=== PATIENT | female | born 1980 | race African-American/Black ===

== ENCOUNTER 2017-05-25 09:47 | Observation (INO) | payer OTHER ==
[2017-05-25] VITALS (7 sets, daily range): BP systolic 91–133; BP diastolic 52–70; PULSE 73–90; RESP 12–18; TEMP 98.3–101; O2SAT 95–99
[~2017-05-25] VITALS: Ht 165.1 cm; Wt 56.0 kg
[~2017-05-25 09:47] MED LIST: BACT800T5 PO; DARU800T PO; DOLU1TAB PO; NORV100C PO; TENO300 PO
[2017-05-25] MEDS ORDERED: SODIUM CHLOR 0.9% 1000 ML INJ 1,000 ML IV ONE (10:23)
--- NOTE | 2017-05-25 10:29 | PD ---
HPI Chief Complaint: Medical Clearance Time Seen by Provider: 10:23 Travel History International Travel<30 days: No Contact w/Intl Traveler<30days: No Traveled to known affect area: No History of Present Illness HPI 36-year-old female patient with history of HIV, CMV retinitis, presents to the ER today because of several days of cough, cold symptoms, fevers, nausea, vomiting, diarrhea,, headaches, and malaise. She states that her daughter is recently getting over a cold. She came in because of her HIV history, states that she just wants to get checked out. Modifying Factors: None Associated Signs & Symptoms: Fevers, nausea, vomiting, diarrhea, malaise, cough , headaches, cold symptoms Risk Factors: Sick contact PFSH Past Medical History Arthritis: No Asthma: Yes Autoimmune Disease: Yes (HIV Positive) Blood Disorders: No Cancer: No Cardiovascular Problems: No High Cholesterol: No Chest Pain: No Congestive Heart Failure: No COPD: No Cerebrovascular Accident: No Diabetes: No Diminished Hearing: No GERD: No Glaucoma: No Headaches: No Hepatitis: Yes (STATES POS FOR HEP B) Hiatal Hernia: No Hypertension: No Immune Disorder: Yes (HIV +) Kidney Stones: No Musculoskeletal: Yes (Right leg sx, metal bar.) Neurologic: No Psychiatric: No Reproductive: No Respiratory: Yes (ASTHMA) Myocardial Infarction: No Renal Failure: No Seizures: No Sleep Apnea: No Thyroid Disease: No Ulcer: No ?: Not : 3 Para: 2 Miscarriage: 1 Tubal Ligation: Yes Past Surgical History Abdominal Surgery: No AICD: No Cardiac Surgery: No Section: Yes (X2) Ear Surgery: No Endocrine Surgery: No Eye Surgery: No Genitourinary Surgery: No Gynecologic Surgery: Yes (, SURG FOR BLOOD CLOT IN [place] 07/05 AT [facility]) Neurologic Surgery: No Oral Surgery: No Pacemaker: No Thoracic Surgery: No Other Surgery: Yes ( X2) Social History Alcohol Use: No Tobacco Use: Yes Substance Use: No Allergies-Medications (Allergen,Severity, Reaction): Coded Allergies: hydrocodone (Verified Allergy, Severe, 05/25/17) lamivudine (Verified Allergy, Severe, 05/25/17) meperidine (Verified Allergy, Severe, 05/25/17) oxycodone (Verified Allergy, Severe, 05/25/17) ITCHING promethazine (Verified Allergy, Severe, 05/25/17) Uncoded Allergies: combivir (Allergy, Severe, 03/14/11) Reported Meds & Prescriptions Reported Meds & Active Scripts Active Reported Tivicay (Dolutegravir Sodium) 50 Mg Tab 1 Tab PO DAILY Bactrim DS (Sulfamethoxazole-Trimethoprim DS) 1 Tab Tab 1 Tab PO BID Prezista (Darunavir Ethanolate) 800 Mg Tab 800 Mg PO DAILY Viread (Tenofovir Disoproxil Fumarate) 300 Mg Tab 300 Mg PO DAILY Norvir (Ritonavir) 100 Mg Cap 100 Mg PO DAILY Review of Systems Except as stated in HPI: all other systems reviewed are Neg Physical Exam Narrative GENERAL: Well-developed young -Maced[place] female patient currently in mild distress. Awake and oriented 3. SKIN: Focused skin assessment warm/dry. HEAD: Atraumatic. Normocephalic. EYES: Pupils equal and round. No scleral icterus. No injection or drainage. ENT: No nasal bleeding or discharge. Mucous membranes pink and moist. NECK: Trachea midline. No JVD. CARDIOVASCULAR: Regular rate and rhythm. No murmur appreciated. RESPIRATORY: No accessory muscle use. Clear to auscultation. Breath sounds equal bilaterally. GASTROINTESTINAL: Abdomen soft, non-tender, nondistended. Hepatic and splenic margins not palpable. MUSCULOSKELETAL: No obvious deformities. No clubbing. No cyanosis. No edema. NEUROLOGICAL: Awake and alert. No obvious cranial nerve deficits. Motor grossly within normal limits. Normal speech. PSYCHIATRIC: Appropriate mood and affect; insight and judgment normal. Data Data Last Documented VS Vital Signs Date Time Temp Pulse Resp B/P (MAP) Pulse Ox O2 Delivery O2 Flow Rate FiO2 05/25/17 10:51 81 16 91/52 (65) 99 Room Air 05/25/17 09:50 98.3 Orders Orders Sepsis Workup Initiated (05/25/17 ) Complete Blood Count With Diff (05/25/17 10:23) Comprehensive Metabolic Panel (05/25/17 10:23) Lactic Acid Sepsis Protocol (05/25/17 10:23) Lipase (05/25/17 10:23) Urinalysis - C+S If Indicated (05/25/17 10:23) Influenzae A/B Antigen (05/25/17 10:23) Blood Culture (05/25/17 10:23) Chest, Single Ap (05/25/17 10:23) Blood Glucose (05/25/17 10:23) Ecg Monitoring (05/25/17 10:23) Iv Access Insert/Monitor (05/25/17 10:23) Oximetry (05/25/17 10:23) Oxygen Administration (05/25/17 10:23) Sodium Chlor 0.9% 1000 Ml Inj (Ns 1000 M (05/25/17 10:23) Ed Urine Pregnancytest Poc (05/25/17 10:23) Cefepime Inj (Maxipime Inj) (05/25/17 10:53) Azithromycin Inj (Zithromax Inj) (05/25/17 10:53) Urine Culture (05/25/17 10:30) Admit Order (Ed Use Only) (05/25/17 12:29) Labs Laboratory Tests Test 05/25/17 10:30 White Blood Count 2.6 TH/MM3 Red Blood Count 3.97 MIL/MM3 Hemoglobin 12.0 GM/DL Hematocrit 36.0 % Mean Corpuscular Volume 90.5 FL Mean Corpuscular Hemoglobin 30.2 PG Mean Corpuscular Hemoglobin Concent 33.3 % Red Cell Distribution Width 18.8 % Platelet Count 113 TH/MM3 Mean Platelet Volume 7.3 FL Neutrophils (%) (Auto) 42.9 % Lymphocytes (%) (Auto) 40.0 % Monocytes (%) (Auto) 13.4 % Eosinophils (%) (Auto) 3.3 % Basophils (%) (Auto) 0.4 % Neutrophils # (Auto) 1.1 TH/MM3 Lymphocytes # (Auto) 1.1 TH/MM3 Monocytes # (Auto) 0.4 TH/MM3 Eosinophils # (Auto) 0.1 TH/MM3 Basophils # (Auto) 0.0 TH/MM3 CBC Comment DIFF FINAL Differential Comment Urine Color LIGHT-RED Urine Turbidity HAZY Urine pH 5.5 Urine Specific Rice 1.040 Urine Protein 100 mg/dL Urine Glucose (UA) NEG mg/dL Urine Ketones TRACE mg/dL Urine Occult Blood LARGE Urine Nitrite NEG Urine Bilirubin NEG Urine Urobilinogen 2.0 MG/DL Urine Leukocyte Esterase SMALL Urine RBC /hpf Urine WBC 8 /hpf Urine Bacteria MOD /hpf Urine Hyaline Casts 20 /lpf Urine Mucus MANY /lpf Microscopic Urinalysis Comment CATH-CULTURE IND Blood Urea Nitrogen 9 MG/DL Creatinine 1.22 MG/DL Random Glucose 85 MG/DL Total Protein 8.1 GM/DL Albumin 3.6 GM/DL Calcium Level 8.6 MG/DL Alkaline Phosphatase 74 U/L Aspartate Amino Transf (AST/SGOT) 18 U/L Alanine Aminotransferase (ALT/SGPT) 18 U/L Total Bilirubin 0.3 MG/DL Sodium Level 137 MEQ/L Potassium Level 3.4 MEQ/L Chloride Level 104 MEQ/L Carbon Dioxide Level 23.6 MEQ/L Anion Gap 9 MEQ/L Estimat Glomerular Filtration Rate 60 ML/MIN Lactic Acid Level 1.2 mmol/L Lipase 108 U/L [facility] Medical Decision Making Medical Screen Exam Complete: Yes Emergency Medical Condition: Yes Medical Record Reviewed: Yes Interpretation(s) Laboratory Tests Test 05/25/17 10:30 White Blood Count 2.6 TH/MM3 (4.0-11.0) Red Blood Count 3.97 MIL/MM3 (4.00-5.30) Red Cell Distribution Width 18.8 % (11.6-17.2) Platelet Count 113 TH/MM3 (150-450) Monocytes (%) (Auto) 13.4 % (0.0-8.0) Neutrophils # (Auto) 1.1 TH/MM3 (1.8-7.7) Urine Color LIGHT-RED (YELLW/STRAW) Urine Turbidity HAZY (CLEAR) Urine Specific Rice 1.040 (1.002-1.035) Urine Protein 100 mg/dL (NEG-TRACE) Urine Ketones TRACE mg/dL (NEG) Urine Occult Blood LARGE (NEG) Urine Leukocyte Esterase SMALL (NEG) Urine WBC 8 /hpf (0-5) Urine Bacteria MOD /hpf (NONE) Urine Mucus MANY /lpf (OCC) Creatinine 1.22 MG/DL (0.50-1.00) Potassium Level 3.4 MEQ/L (3.5-5.1) Estimat Glomerular Filtration Rate 60 ML/MIN (>89) Differential Diagnosis Fevers, nausea, headaches, vomiting, diarrhea, cold symptoms, malaise: Influenza versus viral syndrome versus dehydration versus gastroenteritis versus sepsis Narrative Course Vital signs are stable in the ER. Lab work shows that she has influenza and a UTI. Chest x-ray shows a questionable right lower lobe pneumonia, IV is back strain initiated after cultures are drawn. Considering her history, my plan would be to admit her for further treatment. Case is discussed with Dr. Teixeira for admission. Diagnosis Primary Impression: Influenza Additional Impressions: UTI (urinary tract infection) Pneumonitis Admitting Information Admitting Physician Requests: it Loy Greene MD May 25, 2017 10:29
--- NOTE | 2017-05-25 10:44 | RADRPT ---
EXAM DATE/TIME: 05/25/2017 10:36 [facility] COMPARISON: CHEST PA & LAT, September 12, 2015, 22:36. INDICATIONS : Nausea, vomiting, dizziness, blurry vision x2 days. MEDICAL HISTORY : None. SURGICAL HISTORY : None. ENCOUNTER: Initial ACUITY: 2 days PAIN SCORE: 0/10 LOCATION: Bilateral chest FINDINGS: There is mild infiltrate in the lateral right lung base. No evidence of effusion. Left lung is clear. Cardiomediastinal contours are satisfactory. There is slight thoracic scoliosis. CONCLUSION: Mild infiltrate in the right lung base Catracho Salas MD on May 25, 2017 at 10:41 Board Certified Radiologist. This report was verified electronically.
[2017-05-25] MEDS ORDERED: AZITHROMYCIN INJ 500 MG in SODIUM CHLOR 0.9% 250 ML INJ 250 ML IV STA (10:53)
[2017-05-25] MEDS ORDERED: CEFEPIME INJ 2,000 MG in SODIUM CHLORIDE 0.9% INJ 100 ML IV STA (10:53)
[2017-05-25 11:08] LABS: AUTOMATED NEUTROPHIL # 1.1 TH/MM3 (1.8-7.7); BASOPHIL % 0.4 % (0.0-2.0); EOSINOPHIL # 0.1 TH/MM3 (0-0.4); EOSINOPHIL % 3.3 % (0.0-4.0); HEMO FLAGS DIFF FINAL; LYMPHOCYTE # 1.1 TH/MM3 (1.0-4.8); MEAN CELL VOLUME 90.5 FL (80.0-100.0); MEAN CORPUSCULAR HEMOGLOBIN 30.2 PG (27.0-34.0); MEAN CORPUSCULAR HGB CONC 33.3 % (32.0-36.0); MONO % 13.4 % (0.0-8.0); NEUT % 42.9 % (16.0-70.0); PLATELET COUNT 113 TH/MM3 (150-450); RED BLOOD COUNT 3.97 MIL/MM3 (4.00-5.30); RED CELL DISTRIBUTION WIDTH 18.8 % (11.6-17.2); WHITE BLOOD COUNT 2.6 TH/MM3 (4.0-11.0)
[2017-05-25 11:17] LABS: BACTERIA, URINE MOD /hpf; BLOOD, URINE LARGE (NEG); GLUCOSE,URINE NEG (NEG); HYALINE CAST, URINE 20 /lpf (RARE); KETONE, URINE TRACE mg/dL (NEG); MUCUS URINE MANY /lpf (OCC); NITRITE,URINE NEG (NEG); PH, URINE 5.5 (5.0-8.5)
[2017-05-25 11:18] LABS: URINE COLOR LIGHT-RED (YELLW/STRAW)
[2017-05-25 11:19] LABS: COMMENT (UR) CATH-CULTURE IND; CULTURE IF INDICATED CATH CULTURE IND
[2017-05-25 11:31] LABS: ALT (GPT) 18 U/L (10-53); ANION GAP 9 MEQ/L (5-15); AST (GOT) 18 U/L (15-37); BICARBONATE 23.6 MEQ/L (21.0-32.0); BLOOD UREA NITROGEN 9 MG/DL (7-18); CHLORIDE 104 MEQ/L (98-107); GLOMERULAR FILTRATION RATE 60 ML/MIN (>89); POTASSIUM 3.4 MEQ/L (3.5-5.1); SODIUM (NA) 137 MEQ/L (136-145)
[2017-05-25 11:34] LABS: ALKALINE PHOSPHATASE 74 U/L (45-117); TOTAL BILIRUBIN ADULT 0.3 MG/DL (0.2-1.0)
[2017-05-25] MEDS ORDERED: SENNOSIDES 8.6 MG TAB PO PRN (12:45)
[2017-05-25] MEDS ORDERED: SODIUM CHLORIDE 0.9% FLUSH 10 ML FLUSH IV FLUSH PRN (12:45)
[2017-05-25] MEDS ORDERED: MAGNESIUM HYDROXIDE SUSP 30 ML CUP PO PRN (12:45)
[2017-05-25] MEDS ORDERED: ONDANSETRON HCL 4 MG/2 ML VIAL IVP PRN (12:45)
[2017-05-25] MEDS ORDERED: BISACODYL 10 MG SUPP RECTAL PRN (12:45)
[2017-05-25] MEDS ORDERED: NALOXONE HCL 0.4 MG/ML AMP IV PUSH PRN (12:45)
[2017-05-25] MEDS ORDERED: LACTULOSE SYRUP 20 GM/30 ML CUP PO PRN (12:45)
[2017-05-25] MEDS ORDERED: BENZONATATE 100 MG CAP PO PRN (15:15)
[2017-05-25] MEDS ORDERED: ACETAMINOPHEN 325 MG TAB PO PRN (15:15)
--- NOTE | 2017-05-25 15:24 | HHI.HP ---
[facility] Unknown Admission Diagnosis influenza/pneumonia/UTI Diagnoses: Travel History International Travel<30 Days: No Contact w/Intl Traveler <30 Da: No Traveled to Known Affected Are: No History of Present Illness 36 yo female with history of HIV with unknown last CD4 count, presents with a one-day history of nonproductive cough, unmeasured fevers, chills, generalized weakness with lightheadednes upon standing, unable to take care of herself. Denies any chest pain. She does report shortness of breath over the past day. Report her daughter was sick, came to the ER a couple days ago, was told she had a viral illness. Review of Systems Except as stated in HPI: all other systems reviewed are Neg Past Family Social History Past Medical History HIV on medication. Infectious disease doctor is . Remember most recent CD4 count. Vitamin D deficiency Past Surgical History Right leg surgery. eye surgery for CMV Reported Medications Darunivir 600 mg by mouth twice daily Dolutegravir 50 mg by mouth twice daily ritonavir milligrams by mouth twice daily zidovudine milligrams by mouth twice daily Allergies: Coded Allergies: hydrocodone (Verified Allergy, Severe, 05/25/17) lamivudine (Verified Allergy, Severe, 05/25/17) meperidine (Verified Allergy, Severe, 05/25/17) oxycodone (Verified Allergy, Severe, 05/25/17) ITCHING promethazine (Verified Allergy, Severe, 05/25/17) ritonavir (Verified Allergy, Intermediate, Rash, 05/25/17) Uncoded Allergies: combivir (Allergy, Severe, 03/14/11) Family History Mother with [place] at age 51. Mother also with diabetes. Father is estranged Social History Patient quit smoking 2 weeks ago. Nondrinker. Denies illicit drugs. Physical Exam Vital Signs Vital Signs Date Time Temp Pulse Resp B/P (MAP) Pulse Ox O2 Delivery O2 Flow Rate FiO2 05/25/17 14:05 61 14 102/61 (75) 97 05/25/17 10:51 81 16 91/52 (65) 99 Room Air 05/25/17 10:48 84 16 91/52 (65) 99 Room Air 05/25/17 10:48 99 Room Air 05/25/17 09:50 98.3 90 12 94/52 (66) 98 Physical Exam GENERAL: This is a well-nourished, well-developed patient, appears fatigued. Alert and oriented 3. SKIN: No rashes, ecchymoses or lesions. Cool and dry. HEAD: Atraumatic. Normocephalic. No temporal or scalp tenderness. EYES: Pupils equal round and reactive. Extraocular motions intact. No scleral icterus. No injection or drainage. ENT: Nose without bleeding, purulent drainage or septal hematoma. Throat without erythema, tonsillar hypertrophy or exudate. Uvula midline. Airway patent. NECK: Trachea midline. No JVD or lymphadenopathy. Supple, nontender, no meningeal signs. CARDIOVASCULAR: Regular rate and rhythm without murmurs, gallops, or rubs. RESPIRATORY: Clear to auscultation. Breath sounds equal bilaterally. No wheezes , rales, or rhonchi. GASTROINTESTINAL: Abdomen soft, non-tender, nondistended. No hepato-splenomegaly , or palpable masses. No guarding. MUSCULOSKELETAL: Extremities without clubbing, cyanosis, or edema. No joint tenderness, effusion, or edema noted. No calf tenderness. Negative Homans sign bilaterally. NEUROLOGICAL: Awake and alert. Cranial nerves II through XII intact. Motor and sensory grossly within normal limits. Five out of 5 muscle strength in all muscle groups. Normal speech. Laboratory Laboratory Tests Test 05/25/17 10:30 White Blood Count 2.6 Red Blood Count 3.97 Hemoglobin 12.0 Hematocrit 36.0 Mean Corpuscular Volume 90.5 Mean Corpuscular Hemoglobin 30.2 Mean Corpuscular Hemoglobin Concent 33.3 Red Cell Distribution Width 18.8 Platelet Count 113 Mean Platelet Volume 7.3 Neutrophils (%) (Auto) 42.9 Lymphocytes (%) (Auto) 40.0 Monocytes (%) (Auto) 13.4 Eosinophils (%) (Auto) 3.3 Basophils (%) (Auto) 0.4 Neutrophils # (Auto) 1.1 Lymphocytes # (Auto) 1.1 Monocytes # (Auto) 0.4 Eosinophils # (Auto) 0.1 Basophils # (Auto) 0.0 CBC Comment DIFF FINAL Differential Comment Urine Color LIGHT-RED Urine Turbidity HAZY Urine pH 5.5 Urine Specific Matthews 1.040 Urine Protein 100 Urine Glucose (UA) NEG Urine Ketones TRACE Urine Occult Blood LARGE Urine Nitrite NEG Urine Bilirubin NEG Urine Urobilinogen 2.0 Urine Leukocyte Esterase SMALL Urine RBC Urine WBC 8 Urine Bacteria MOD Urine Hyaline Casts 20 Urine Mucus MANY Microscopic Urinalysis Comment CATH-CULTURE IND Blood Urea Nitrogen 9 Creatinine 1.22 Random Glucose 85 Total Protein 8.1 Albumin 3.6 Calcium Level 8.6 Alkaline Phosphatase 74 Aspartate Amino Transf (AST/SGOT) 18 Alanine Aminotransferase (ALT/SGPT) 18 Total Bilirubin 0.3 Sodium Level 137 Potassium Level 3.4 Chloride Level 104 Carbon Dioxide Level 23.6 Anion Gap 9 Estimat Glomerular Filtration Rate 60 Lactic Acid Level 1.2 Lipase 108 Date/Time Source Procedure Growth Status 05/25/17 10:40 Blood Peripheral Aerobic Blood Culture Pending Received 05/25/17 10:40 Blood Peripheral Anaerobic Blood Culture Pending Received 05/25/17 10:45 Nasal Washing Influenza Types A,B Antigen (BON) - Final Positive For Flu A Antigen Complete 05/25/17 10:30 Urine Catheterized Urine Urine Culture Pending Received Result Diagram: 05/25/17 1030 05/25/17 1030 Caprini VTE Risk Assessment Caprini VTE Risk Assessment: No/Low Risk (score <= 1) Caprini Risk Assessment Model Point Value = 1 Point Value = 2 Point Value = 3 Point Value = 5 Age 41-60 Minor surgery BMI > 25 kg/m2 Swollen legs Varicose veins or History of unexplained or recurrent spontaneous Oral contraceptives or hormone replacement Sepsis (< 1 month) Serious lung disease, including pneumonia (< 1 month) Abnormal pulmonary function Acute myocardial infarction Congestive heart failure (< 1 month) History of inflammatory bowel disease Medical patient at bed rest Age 61-74 Arthroscopic surgery Major open surgery (> 45 min) Laparoscopic surgery (> 45 min) Malignancy Confined to bed (> 72 hours) Immobilizing plaster cast Central venous access Age >= 75 History of VTE Family history of VTE Factor V Leiden Prothrombin [id number] Lupus anticoagulant Anticardiolipin antibodies Elevated serum homocysteine Heparin-induced thrombocytopenia Other congenital or acquired thrombophilia Stroke (< 1 month) Elective arthroplasty Hip, pelvis, or leg fracture Acute spinal cord injury (< 1 month) Prophylaxis Regimen Total Risk Factor Score Risk Level Prophylaxis Regimen 0-1 Low Early ambulation 2 Moderate Order ONE of the following: *Sequential Compression Device (SCD) *Heparin 5000 units SQ BID 3-4 Higher Order ONE of the following medications: *Heparin 5000 units SQ TID *Enoxaparin/Lovenox 40 mg SQ daily (WT < 150 kg, CrCl > 30 mL/min) *Enoxaparin/Lovenox 30 mg SQ daily (WT < 150 kg, CrCl > 10-29 mL/min) *Enoxaparin/Lovenox 30 mg SQ BID (WT < 150 kg, CrCl > 30 mL/min) AND/OR *Sequential Compression Device (SCD) 5 or more Highest Order ONE of the following medications: *Heparin 5000 units SQ TID (Preferred with Epidurals) *Enoxaparin/Lovenox 40 mg SQ daily (WT < 150 kg, CrCl > 30 mL/min) *Enoxaparin/Lovenox 30 mg SQ daily (WT < 150 kg, CrCl > 10-29 mL/min) *Enoxaparin/Lovenox 30 mg SQ BID (WT < 150 kg, CrCl > 30 mL/min) AND *Sequential Compression Device (SCD) Assessment and Plan Assessment and Plan //Influenza pneumonia. //Suspected sepsis -Unmeasured fevers at home, however afebrile here. Leukopenia with white blood cell count 2.4. -Positive influenza a. -Start Tamiflu. Personally care predicted chest x-ray with Small right lung base infiltrate. Continue Levaquin started in the ER. -Monitor vitals. -Antitussive when necessary. //Nausea, vomiting. Secondary to influenza, fevers. Antiemetics when necessary. //Hypokalemia. Mild. Replaced. //HIV. Continue home medications. === Discussed Condition With patient, nurse, ED physician. Bang Teixeira MD May 25, 2017 15:24
[2017-05-25] MEDS ORDERED: Vit C PO (15:31)
[2017-05-25] MEDS ORDERED: DARU600 PO (15:31)
[2017-05-25] MEDS ORDERED: RITO100 PO (15:31)
[2017-05-25] MEDS ORDERED: ZIDO100C4 PO (15:31)
[2017-05-25] MEDS ORDERED: SULF1TAB23 PO (15:31)
[2017-05-25] MEDS ORDERED: DOLU1TAB PO (15:31)
[2017-05-25] MEDS ORDERED: VITA1000 PO (15:36)
[2017-05-25] MEDS: SODIUM CHLOR 0.9% 1000 ML INJ 1,000 ML IV SCH ×2 (15:45→23:00)
[2017-05-25] MEDS: SODIUM CHLORIDE 0.9% FLUSH 10 ML FLUSH IV FLUSH SCH (21:00)
[2017-05-25] MEDS: RITONAVIR 100 MG TAB PO SCH ×2 (21:00→21:23)
[2017-05-25] MEDS: OSELTAMIVIR PHOSPHATE 75 MG CAP PO SCH (21:23)
[2017-05-25] MEDS: ZIDOVUDINE 100 MG CAP PO SCH (21:23)
[2017-05-25] MEDS: DOLUTEGRAVIR SODIUM 50 MG TAB PO SCH (21:23)
[2017-05-25] MEDS: DARUNAVIR 600 MG TAB PO SCH (21:24)
[2017-05-26 04:19] VITALS: BP 107/64; PULSE 81; RESP 20; TEMP 99.1; O2SAT 96
[2017-05-26] MEDS: SODIUM CHLOR 0.9% 1000 ML INJ 1,000 ML IV SCH (08:39)
[2017-05-26] MEDS: SODIUM CHLORIDE 0.9% FLUSH 10 ML FLUSH IV FLUSH SCH (08:40)
[2017-05-26] MEDS: ZIDOVUDINE 100 MG CAP PO SCH (08:44)
[2017-05-26] MEDS: DARUNAVIR 600 MG TAB PO SCH (08:44)
[2017-05-26] MEDS: RITONAVIR 100 MG TAB PO SCH (08:44)
[2017-05-26] MEDS: DOLUTEGRAVIR SODIUM 50 MG TAB PO SCH (08:44)
[2017-05-26] MEDS: OSELTAMIVIR PHOSPHATE 75 MG CAP PO SCH (08:44)
[2017-05-26 08:51] VITALS: BP 107/69; PULSE 80; RESP 24; TEMP 98.2; O2SAT 97
[2017-05-26] MEDS ORDERED: LEVOFLOXACIN 750 MG TAB PO SCH (09:00)
[2017-05-26] MEDS ORDERED: INFLUENZA VIRUS VACCINE (QUADRIVALENT) 0.5 ML SYR IM ONE (10:00)
[2017-05-26 11:52] VITALS: BP 116/63; PULSE 69; RESP 20; TEMP 98.6; O2SAT 97
[2017-05-26 13:53] LABS: BASOPHIL % 0.3 % (0.0-2.0); EOSINOPHIL # 0.2 TH/MM3 (0-0.4); EOSINOPHIL % 7.6 % (0.0-4.0); HEMATOCRIT 33.2 % (35.0-46.0); HEMO FLAGS DIFF FINAL; LYMPH % 45.5 % (9.0-44.0); LYMPHOCYTE # 1.3 TH/MM3 (1.0-4.8); MEAN CORPUSCULAR HEMOGLOBIN 30.5 PG (27.0-34.0); MEAN CORPUSCULAR HGB CONC 33.1 % (32.0-36.0); MONO % 10.8 % (0.0-8.0); NEUT % 35.8 % (16.0-70.0); PLATELET COUNT 103 TH/MM3 (150-450); RED BLOOD COUNT 3.61 MIL/MM3 (4.00-5.30); RED CELL DISTRIBUTION WIDTH 19.5 % (11.6-17.2); WHITE BLOOD COUNT 2.8 TH/MM3 (4.0-11.0)
[2017-05-26 14:20] LABS: ALT (GPT) 15 U/L (10-53); ANION GAP 8 MEQ/L (5-15); AST (GOT) 17 U/L (15-37); BICARBONATE 21.4 MEQ/L (21.0-32.0); BLOOD UREA NITROGEN 6 MG/DL (7-18); CHLORIDE 108 MEQ/L (98-107); GLOMERULAR FILTRATION RATE 98 ML/MIN (>89); POTASSIUM 3.9 MEQ/L (3.5-5.1); SODIUM (NA) 137 MEQ/L (136-145)
[2017-05-26 14:23] LABS: ALKALINE PHOSPHATASE 57 U/L (45-117); TOTAL BILIRUBIN ADULT 0.3 MG/DL (0.2-1.0)
[2017-05-26] MEDS ORDERED: ONDA8TAB7 PO (15:06)
[2017-05-26] MEDS ORDERED: LEVA750T9 PO (15:06)
[2017-05-26] MEDS ORDERED: OSEL75 PO (15:06)
[2017-05-26] MEDS ORDERED: BENZ1CAP54 PO (15:14)
[2017-05-26] MEDS ORDERED: TYLE325T PO (15:15)
--- NOTE | 2017-05-26 15:23 | HHI.PR ---
Subjective Remarks Patient says she is feeling better today. Denies any chest pain or shortness of breath. Says she is tolerating diet. Says that she does have a headache the past 2 days only while coughing. No focal signs or symptoms. Objective Vital Signs Date Time Temp Pulse Resp B/P (MAP) Pulse Ox O2 Delivery O2 Flow Rate FiO2 05/26/17 11:52 98.6 69 20 116/63 (80) 97 05/26/17 08:51 98.2 80 24 107/69 (82) 97 05/26/17 04:19 99.1 81 20 107/64 (78) 96 05/25/17 23:30 98.8 85 18 100/61 (74) 95 05/25/17 20:10 101.0 84 18 133/70 (91) 97 05/25/17 15:43 98.3 73 18 101/70 (80) 96 I/O 05/25/17 05/25/17 05/25/17 05/26/17 05/26/17 05/26/17 07:00 15:00 23:00 07:00 15:00 23:00 Intake Total 1350 ml 480 ml 1000 ml Balance 1350 ml 480 ml 1000 ml Intake Oral 480 ml IV Total 1350 ml 1000 ml # Voids 4 4 # Bowel Movements 1 4 Result Diagram: 05/26/17 1340 05/26/17 1340 Objective Remarks GENERAL: Patient sitting up. breathing comfortably. Appears comfortable. SKIN: Warm and dry. HEAD: Normocephalic. EYES: No scleral icterus. No injection or drainage. NECK: Supple, trachea midline. No JVD. CARDIOVASCULAR: Regular rate and rhythm without murmurs, gallops, or rubs. RESPIRATORY: Breath sounds equal bilaterally. No accessory muscle use. GASTROINTESTINAL: Abdomen soft, non-tender, nondistended. MUSCULOSKELETAL: No cyanosis, or edema. BACK: Nontender without obvious deformity. No CVA tenderness. A/P Assessment and Plan //Influenza pneumonia. //Suspected sepsis -Unmeasured fevers at home, however afebrile here. Leukopenia with white blood cell count 2.4. -Positive influenza a. -Start Tamiflu. Personally care predicted chest x-ray with Small right lung base infiltrate. Continue Levaquin started in the ER. -Monitor vitals. -Antitussive when necessary. = Patient with fever 101 overnight. Resolved with Tylenol. Discharge home. Continue Levaquin to complete treatment course. Tylenol as needed for fever. Complete course of Tamiflu. Patient denies any dysuria. //Nausea, vomiting. Secondary to influenza, fevers. Antiemetics when necessary. = Improved. Continue antiemetics at home. //Hypokalemia. Hold after replacement. //HIV. Continue home medications. Discharge Planning Discharge home in good condition. Activity ad mg. Regular diet. Please see discharge med reconciliation for medication list. Follow-up with primary care Bang Teixeira MD May 26, 2017 15:23
[2017-05-27] MEDS ORDERED: SULFAMETHOXAZOLE-TRIMETHOPRIM DS 800-160 MG TAB PO SCH (09:00)
== END 2017-05-26 16:24 | disposition home or self-care (01) ==
LOC: NEPC 09:47 → NEDA 12:32 → NEPGCP 14:10
PROVIDERS: ADMIT Internal Medicine; ATTEND Internal Medicine
DX: J11.00 Influenza due to unidentified influenza virus with unspecified type of pneumonia (principal); D72.819 Decreased white blood cell count, unspecified; E87.6 Hypokalemia; Z21 Asymptomatic human immunodeficiency virus [HIV] infection status; N39.0 Urinary tract infection, site not specified; R11.2 Nausea with vomiting, unspecified
CPT/HCPCS: 71010; 80053; 81001; 83605; 83690; 84703; 85025; 87040; 87086; 87804; 96361; 96374; 96376; 97161; 99285; G0378; G8987; G8988; J0456; J0692; J7030; J7050

== ENCOUNTER 2017-08-19 11:55 | Inpatient (IN) | payer OTHER ==
[~2017-08-19] VITALS: Ht 165.1 cm; Wt 50.7 kg
[~2017-08-19 11:55] MED LIST changes: -BACT800T5 PO; +BENZ1CAP54 PO; +DARU600 PO; -DARU800T PO; +LEVA750T9 PO; -NORV100C PO; +ONDA8TAB7 PO; +OSEL75 PO; +RITO100 PO; +SULF1TAB23 PO; -TENO300 PO; +TYLE325T PO; +VITA1000 PO; +ZIDO100C4 PO
[2017-08-19 11:57] VITALS: BP 111/76; PULSE 102; RESP 16; TEMP 101.6; O2SAT 95
[2017-08-19] MEDS ORDERED: SODIUM CHLOR 0.9% 1000 ML INJ 1,000 ML IV ONE (12:21)
[2017-08-19] MEDS ORDERED: SODIUM CHLOR 0.9% 1000 ML INJ 800 ML IV ONE (12:21)
[2017-08-19] MEDS ORDERED: ACETAMINOPHEN 325 MG TAB PO ONE (12:30)
--- NOTE | 2017-08-19 12:37 | RADRPT ---
EXAM DATE/TIME: 08/19/2017 12:21 [facility] COMPARISON: CHEST PA & LAT, September 12, 2015, 22:36. INDICATIONS : Cough, fever, and flu like symptoms. Recently had flu 2 months ago. MEDICAL HISTORY : None. SURGICAL HISTORY : None. ENCOUNTER: Initial ACUITY: 3 days PAIN SCORE: 6/10 LOCATION: Bilateral chest FINDINGS: PA and lateral views of the chest demonstrate subsegmental airspace disease at the right lung base mo st characteristic of a mild bronchopneumonia. Left lung clear. Heart size normal. Mild scoliosis. CONCLUSION: 1. Subsegmental airspace disease in the right lung base most characteristic of a mild bronchopneumoni a. Chris Vázquez MD on August 19, 2017 at 12:33 Board Certified Radiologist. This report was verified electronically.
--- NOTE | 2017-08-19 12:39 | PD ---
HPI Chief Complaint: Cold / Flu Symptoms Time Seen by Provider: 12:19 Travel History International Travel<30 days: No Contact w/Intl Traveler<30days: No Traveled to known affect area: No History of Present Illness HPI 36-year-old female with PMH of HIV presents to the ED for evaluation of 4 day history of cold and flu symptoms. Gradual onset. No alleviating or exacerbating factors reported. Patient endorses sinus congestion, nonproductive cough, pleuritic chest pain, fevers, nausea and vomiting. She denies headaches, dizziness, chest pain, palpitations, shortness of breath, abdominal pain, dysuria, vaginal discharge. Last menstrual period 08/02/17. Patient endorses tubal ligation, denies risk of . She is unsure of her last CD4 count or viral load. She states that she is scheduled to have 6 month labs drawn in a few days. She denies sick contacts. She's unsure she received a flu shot this year. PFSH Past Medical History Arthritis: No Asthma: Yes Autoimmune Disease: Yes (HIV Positive) Blood Disorders: No Cancer: No Cardiovascular Problems: No High Cholesterol: No Chest Pain: No Congestive Heart Failure: No COPD: No Cerebrovascular Accident: No Diabetes: No Diminished Hearing: No Endocrine: No GERD: No Glaucoma: No Genitourinary: No Headaches: No Hepatitis: Yes (STATES POS FOR HEP B) Hiatal Hernia: No Hypertension: No Immune Disorder: Yes (HIV +) Kidney Stones: No Musculoskeletal: Yes (Right leg sx, metal bar.) Neurologic: No Psychiatric: No Reproductive: No Respiratory: Yes (ASTHMA) Myocardial Infarction: No Renal Failure: No Seizures: No Sleep Apnea: No Thyroid Disease: No Ulcer: No : 3 Para: 2 Miscarriage: 1 Tubal Ligation: Yes Past Surgical History Abdominal Surgery: No AICD: No Body Medical Devices: rosey in leg Cardiac Surgery: No Section: Yes (X2) Ear Surgery: No Endocrine Surgery: No Eye Surgery: No Genitourinary Surgery: No Gynecologic Surgery: Yes (SURG FOR BLOOD CLOT IN VAGINA 07/05 AT [facility]) Neurologic Surgery: No Oral Surgery: No Pacemaker: No Thoracic Surgery: No Other Surgery: Yes ( X2) Social History Alcohol Use: No Tobacco Use: Yes Substance Use: No Allergies-Medications (Allergen,Severity, Reaction): Coded Allergies: hydrocodone (Verified Allergy, Severe, 08/19/17) lamivudine (Verified Allergy, Severe, 08/19/17) meperidine (Verified Allergy, Severe, 08/19/17) oxycodone (Verified Allergy, Severe, 08/19/17) ITCHING promethazine (Verified Allergy, Severe, 08/19/17) ritonavir (Verified Allergy, Intermediate, Rash, 08/19/17) Uncoded Allergies: combivir (Allergy, Severe, 03/14/11) Reported Meds & Prescriptions Reported Meds & Active Scripts Active Reported Calcium + D3 (Calcium Carbonate-Cholecalciferol) 600-200 Mg-Unit Tab 1 Tab PO BID Viread (Tenofovir Disoproxil Fumarate) Unknown Strength Tab 1 Tab PO DAILY Vitamin D-1000 (Cholecalciferol) 1,000 Unit Tab 50,000 Units PO WEEKLY Prezista (Darunavir) 600 Mg Tab 600 Mg PO BID Norvir (Ritonavir) 100 Mg Cap 100 Mg PO BID Sulfamethoxazole-Trimethoprim 800-160 Mg Tab 1 Tab PO MOWEFR Take 1 tablet daily on Thursday,Thursday and Thursday Tivicay (Dolutegravir Sodium) 50 Mg Tab 50 Mg PO BID Review of Systems Except as stated in HPI: all other systems reviewed are Neg Physical Exam Narrative GENERAL: Well-nourished, well-developed petite female in no acute distress. SKIN: Focused skin assessment warm/dry. HEAD: Normocephalic. EYES: No scleral icterus. No injection or drainage. ENT: Pearly solis tympanic membranes bilaterally. Oropharynx without erythema, edema, exudate. NECK: Supple, trachea midline. No JVD or lymphadenopathy. CARDIOVASCULAR: Regular rate and rhythm without murmurs, gallops, or rubs. RESPIRATORY: Breath sounds clear and equal bilaterally. No accessory muscle use. GASTROINTESTINAL: Abdomen soft, nondistended. Bowel suprapubic tenderness. Active bowel sounds. MUSCULOSKELETAL: No cyanosis, or edema. Moves the extremities spontaneously. BACK: Nontender without obvious deformity. No CVA tenderness. Data Data Last Documented VS Vital Signs Date Time Temp Pulse Resp B/P (MAP) Pulse Ox O2 Delivery O2 Flow Rate FiO2 08/19/17 14:11 100.0 08/19/17 12:48 95 Room Air 08/19/17 11:57 102 16 Orders Orders Sepsis Workup Initiated (08/19/17 ) Complete Blood Count With Diff (08/19/17 12:02) Comprehensive Metabolic Panel (08/19/17 12:02) Lactic Acid Sepsis Protocol (08/19/17 12:02) Urinalysis - C+S If Indicated (08/19/17 12:02) Influenzae A/B Antigen (08/19/17 12:02) Blood Culture (08/19/17 12:02) Chest, Pa & Lat (08/19/17 12:02) Ed Urine Pregnancytest Poc (08/19/17 12:02) Ecg Monitoring (08/19/17 12:21) Iv Access Insert/Monitor (08/19/17 12:21) Oximetry (08/19/17 12:21) Acetaminophen (Tylenol) (08/19/17 12:30) Sodium Chlor 0.9% 1000 Ml Inj (Ns 1000 M (08/19/17 12:21) Sodium Chlor 0.9% 1000 Ml Inj (Ns 1000 M (08/19/17 12:21) Ondansetron Inj (Zofran Inj) (08/19/17 12:45) Urine Culture (08/19/17 12:33) Ceftriaxone Inj (Rocephin Inj) (08/19/17 14:00) Admit Order (Ed Use Only) (08/19/17 14:31) Labs Laboratory Tests Test 08/19/17 12:15 08/19/17 12:33 08/19/17 12:55 Lactic Acid Level 1.0 mmol/L Urine Color YELLOW Urine Turbidity HAZY Urine pH 7.5 Urine Specific [place] 1.028 Urine Protein 100 mg/dL Urine Glucose (UA) NEG mg/dL Urine Ketones 10 mg/dL Urine Occult Blood SMALL Urine Nitrite NEG Urine Bilirubin NEG Urine Urobilinogen LESS THAN 2.0 MG/DL Urine Leukocyte Esterase LARGE Urine RBC 5 /hpf Urine WBC 101 /hpf Urine Squamous Epithelial Cells 5 /hpf Urine Amorphous Sediment MOD Urine Bacteria RARE /hpf Urine Hyaline Casts 5 /lpf Urine Mucus MANY /lpf Microscopic Urinalysis Comment CATH-CULTURE IND White Blood Count 3.8 TH/MM3 Red Blood Count 4.30 MIL/MM3 Hemoglobin 13.3 GM/DL Hematocrit 39.3 % Mean Corpuscular Volume 91.4 FL Mean Corpuscular Hemoglobin 31.0 PG Mean Corpuscular Hemoglobin Concent 34.0 % Red Cell Distribution Width 13.2 % Platelet Count 102 TH/MM3 Mean Platelet Volume 8.0 FL Neutrophils (%) (Auto) 66.5 % Lymphocytes (%) (Auto) 22.2 % Monocytes (%) (Auto) 9.7 % Eosinophils (%) (Auto) 1.4 % Basophils (%) (Auto) 0.2 % Neutrophils # (Auto) 2.5 TH/MM3 Lymphocytes # (Auto) 0.8 TH/MM3 Monocytes # (Auto) 0.4 TH/MM3 Eosinophils # (Auto) 0.1 TH/MM3 Basophils # (Auto) 0.0 TH/MM3 CBC Comment DIFF FINAL Differential Comment Blood Urea Nitrogen 11 MG/DL Creatinine 1.24 MG/DL Random Glucose 81 MG/DL Total Protein 8.1 GM/DL Albumin 3.6 GM/DL Calcium Level 8.4 MG/DL Alkaline Phosphatase 57 U/L Aspartate Amino Transf (AST/SGOT) 32 U/L Alanine Aminotransferase (ALT/SGPT) 21 U/L Total Bilirubin 0.5 MG/DL Sodium Level 133 MEQ/L Potassium Level 4.1 MEQ/L Chloride Level 104 MEQ/L Carbon Dioxide Level 21.4 MEQ/L Anion Gap 8 MEQ/L Estimat Glomerular Filtration Rate 59 ML/MIN MDM Medical Decision Making Medical Screen Exam Complete: Yes Emergency Medical Condition: Yes Differential Diagnosis influenza versus viral syndrome versus PNA versus UTI versus other Narrative Course 36-year-old female with PMH of HIV presents to the ED for evaluation of 4 day history of cold and flu symptoms. She is unsure of her last CD4 count or viral load. She denies sick contacts. She's unsure she received a flu shot this year. Temperature 1.6, pulse 102, BP 111/76 on presentation. Physical exam reveals a petite female in no acute distress. ENT exam is unremarkable. A CTA be. There is mild tenderness to palpation in the suprapubic region. Exam otherwise unremarkable. Sepsis workup with fluid resuscitation was initiated. Patient was administered 650 mg of Tylenol and 4 mg Zofran. CBC: WBC 3.8. Hemoglobin 13.3. CMP: BUN 11, creatinine 1.24. Lactic acid 1.0. UA: Hazy, small occult blood, large leukocyte Estrace, 101 wbc's, rare bacteria. Culture indicated. Flu swab positive. CXR: Subsegmental airspace disease in the right lung base most characteristic of a mild bronchopneumonia per radiology read. Patient was administered 1 g of Rocephin IV. Temperature trending downward on recheck. I discussed the results of the workup with the patient as well as the need for admission to treat flu, pneumonia, UTI. Patient agreeable with this plan. I spoke with Dr. Carlin who agrees to accept the patient to the medicine service. Please see medicine notes for disposition. Bev Sarabia Aug 19, 2017 12:39
[2017-08-19] MEDS ORDERED: ONDANSETRON HCL 4 MG/2 ML VIAL IV PUSH ONE (12:45)
[2017-08-19 12:48] VITALS: TEMP 102.8; O2SAT 95
[2017-08-19 13:16] LABS: AUTOMATED NEUTROPHIL # 2.5 TH/MM3 (1.8-7.7); BASOPHIL % 0.2 % (0.0-2.0); EOSINOPHIL # 0.1 TH/MM3 (0-0.4); EOSINOPHIL % 1.4 % (0.0-4.0); HEMATOCRIT 39.3 % (35.0-46.0); HEMOGLOBIN 13.3 GM/DL (11.6-15.3); LYMPH % 22.2 % (9.0-44.0); LYMPHOCYTE # 0.8 TH/MM3 (1.0-4.8); MEAN CELL VOLUME 91.4 FL (80.0-100.0); MONO % 9.7 % (0.0-8.0); MONOCYTE # 0.4 TH/MM3 (0-0.9); NEUT % 66.5 % (16.0-70.0); PLATELET COUNT 102 TH/MM3 (150-450); RED CELL DISTRIBUTION WIDTH 13.2 % (11.6-17.2); WHITE BLOOD COUNT 3.8 TH/MM3 (4.0-11.0)
[2017-08-19] MEDS ORDERED: TENO150T PO (13:19)
[2017-08-19] MEDS ORDERED: CALC600T10 PO (13:19)
[2017-08-19 13:26] LABS: AMORPHOUS SEDIMENT, URINE MOD; BACTERIA, URINE RARE /hpf; BILIRUBIN, URINE NEG (NEG); BLOOD, URINE SMALL (NEG); GLUCOSE,URINE NEG (NEG); HYALINE CAST, URINE 5 /lpf (RARE); KETONE, URINE 10 mg/dL (NEG); MUCUS URINE MANY /lpf (OCC); NITRITE,URINE NEG (NEG); PH, URINE 7.5 (5.0-8.5); SQUAMOUS EPITHELIAL CELL URINE 5 /hpf (0-5); URINE COLOR YELLOW (YELLW/STRAW); URINE LEUKOCYTE ESTERASE LARGE (NEG)
[2017-08-19 13:41] LABS: ALKALINE PHOSPHATASE 57 U/L (45-117); ALT (GPT) 21 U/L (10-53); TOTAL BILIRUBIN ADULT 0.5 MG/DL (0.2-1.0); TOTAL PROTEIN 8.1 GM/DL (6.4-8.2)
[2017-08-19 13:52] LABS: ALBUMIN 3.6 GM/DL (3.4-5.0); AST (GOT) 32 U/L (15-37); BICARBONATE 21.4 MEQ/L (21.0-32.0); BLOOD UREA NITROGEN 11 MG/DL (7-18); CALCIUM 8.4 MG/DL (8.5-10.1); CHLORIDE 104 MEQ/L (98-107); CREATININE 1.24 MG/DL (0.50-1.00); GLOMERULAR FILTRATION RATE 59 ML/MIN (>89); GLUCOSE,RANDOM 81 MG/DL (74-106); SODIUM (NA) 133 MEQ/L (136-145)
[2017-08-19] MEDS ORDERED: cefTRIAXone INJ 1,000 MG in SODIUM CHLORIDE 0.9% INJ 100 ML IV ONE (14:00)
[2017-08-19 14:11] VITALS: TEMP 100
[2017-08-19 15:02] VITALS: TEMP 98.8
[2017-08-19] MEDS ORDERED: SENNOSIDES 8.6 MG TAB PO PRN (15:15)
[2017-08-19] MEDS ORDERED: SODIUM CHLORIDE 0.9% FLUSH 10 ML FLUSH IV FLUSH PRN (15:15)
[2017-08-19] MEDS ORDERED: MAGNESIUM HYDROXIDE SUSP 30 ML CUP PO PRN (15:15)
[2017-08-19] MEDS ORDERED: LACTULOSE SYRUP 20 GM/30 ML CUP PO PRN (15:15)
[2017-08-19] MEDS ORDERED: NALOXONE HCL 0.4 MG/ML AMP IV PUSH PRN (15:15)
[2017-08-19] MEDS ORDERED: ACETAMINOPHEN 325 MG TAB PO PRN (15:15)
[2017-08-19] MEDS ORDERED: BISACODYL 10 MG SUPP RECTAL PRN (15:15)
--- NOTE | 2017-08-19 15:28 | HHI.HP ---
HPI Service [facility] Primary Care Physician Dav Waldron MD Admission Diagnosis influenza, UTI, sepsis Diagnoses: Chief Complaint: cough, fever Travel History International Travel<30 Days: No Contact w/Intl Traveler <30 Da: No Traveled to Known Affected Are: No Sepsis Criteria SIRS Criteria (2 or more): Temp > 100.9 or < 96.8, Heart rate over 90 Sepsis Criteria (SIRS+source): Infect source susp/known History of Present Illness 36-year-old female with a medical history significant for HIV. The patient had influenza back in April. Presented today again with complaints of fever, cough, nausea, vomiting and diarrhea. She states she's new she had the fluid and because symptoms are the same. She also complained of mild shortness of breath. She states she tried [id number] medications but has been unable to keep anything down. Patient meets sepsis criteria a workup in the emergency room and her chest x-ray consistent with pneumonia therefore she will be admitted for further treatment. Review of Systems Constitutional: COMPLAINS OF: Fatigue, Fever, Chills, Change in appetite Ears, nose, mouth, throat: COMPLAINS OF: Nasal discharge, Throat pain, Hoarseness Respiratory: COMPLAINS OF: Cough, Shortness of breath, DENIES: Wheezing, Sputum production Cardiovascular: DENIES: Chest pain, Lower Extremity Edema Gastrointestinal: COMPLAINS OF: Diarrhea, Nausea, Vomiting Genitourinary: DENIES: Dysuria Musculoskeletal: COMPLAINS OF: Muscle aches Integumentary: DENIES: Pruritus, Rash Neurologic: DENIES: Headache Psychiatric: DENIES: Anxiety, Mood changes Except as stated in HPI: all other systems reviewed are Neg Past Family Social History Past Medical History HIV, has been on antiretroviral therapy. 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 Past Surgical History 2 Reported Medications Reported Meds & Active Scripts Active Reported Calcium + D3 (Calcium Carbonate-Cholecalciferol) 600-200 Mg-Unit Tab 1 Tab PO BID Viread (Tenofovir Disoproxil Fumarate) Unknown Strength Tab 1 Tab PO DAILY Vitamin D-1000 (Cholecalciferol) 1,000 Unit Tab 50,000 Units PO WEEKLY Prezista (Darunavir) 600 Mg Tab 600 Mg PO BID Norvir (Ritonavir) 100 Mg Cap 100 Mg PO BID Sulfamethoxazole-Trimethoprim 800-160 Mg Tab 1 Tab PO MOWEFR Take 1 tablet daily on Thursday,Thursday and Thursday Tivicay (Dolutegravir Sodium) 50 Mg Tab 50 Mg PO BID Allergies: Coded Allergies: hydrocodone (Verified Allergy, Severe, 08/19/17) lamivudine (Verified Allergy, Severe, 08/19/17) meperidine (Verified Allergy, Severe, 08/19/17) oxycodone (Verified Allergy, Severe, 08/19/17) ITCHING promethazine (Verified Allergy, Severe, 08/19/17) zidovudine (Verified Allergy, Unknown, 08/19/17) Uncoded Allergies: combivir (Allergy, Severe, 03/14/11) Family History Reviewed and is noncontributory. Social History She quit using tobacco about 3 months ago since her last admission here. Denies alcohol or illicit drug use. Physical Exam Vital Signs Vital Signs Date Time Temp Pulse Resp B/P (MAP) Pulse Ox O2 Delivery O2 Flow Rate FiO2 08/19/17 15:02 98.8 08/19/17 14:11 100.0 08/19/17 12:48 102.8 95 Room Air 08/19/17 11:57 101.6 102 16 111/76 (88) 95 Physical Exam GENERAL: Patient look miserable with coughing spells. SKIN: No rashes, ecchymoses or lesions. Cool and dry. HEAD: Atraumatic. Normocephalic. No temporal or scalp tenderness. EYES: Pupils equal round and reactive. Extraocular motions intact. No scleral icterus. No injection or drainage. ENT: Nose without bleeding, purulent drainage or septal hematoma. Throat without erythema, tonsillar hypertrophy or exudate. Uvula midline. Airway patent. NECK: Trachea midline. No JVD or lymphadenopathy. Supple, nontender, no meningeal signs. CARDIOVASCULAR: Regular rate and rhythm without murmurs, gallops, or rubs. RESPIRATORY: Diminished breath sounds bilaterally at the bases, more so on the right base with scattered rhonchi. Spasmodic cough. GASTROINTESTINAL: Abdomen soft, non-tender, nondistended. No hepato-splenomegaly , or palpable masses. No guarding. MUSCULOSKELETAL: Extremities without clubbing, cyanosis, or edema. Negative Homans sign bilaterally. NEUROLOGICAL: Awake and alert. Cranial nerves II through XII intact. Motor and sensory grossly within normal limits. Five out of 5 muscle strength in all muscle groups. Normal speech. Laboratory Laboratory Tests Test 08/19/17 12:15 08/19/17 12:33 08/19/17 12:55 Lactic Acid Level 1.0 Urine Color YELLOW Urine Turbidity HAZY Urine pH 7.5 Urine Specific [place] 1.028 Urine Protein 100 Urine Glucose (UA) NEG Urine Ketones 10 Urine Occult Blood SMALL Urine Nitrite NEG Urine Bilirubin NEG Urine Urobilinogen LESS THAN 2.0 Urine Leukocyte Esterase LARGE Urine RBC 5 Urine WBC 101 Urine Squamous Epithelial Cells 5 Urine Amorphous Sediment MOD Urine Bacteria RARE Urine Hyaline Casts 5 Urine Mucus MANY Microscopic Urinalysis Comment CATH-CULTURE IND White Blood Count 3.8 Red Blood Count 4.30 Hemoglobin 13.3 Hematocrit 39.3 Mean Corpuscular Volume 91.4 Mean Corpuscular Hemoglobin 31.0 Mean Corpuscular Hemoglobin Concent 34.0 Red Cell Distribution Width 13.2 Platelet Count 102 Mean Platelet Volume 8.0 Neutrophils (%) (Auto) 66.5 Lymphocytes (%) (Auto) 22.2 Monocytes (%) (Auto) 9.7 Eosinophils (%) (Auto) 1.4 Basophils (%) (Auto) 0.2 Neutrophils # (Auto) 2.5 Lymphocytes # (Auto) 0.8 Monocytes # (Auto) 0.4 Eosinophils # (Auto) 0.1 Basophils # (Auto) 0.0 CBC Comment DIFF FINAL Differential Comment Blood Urea Nitrogen 11 Creatinine 1.24 Random Glucose 81 Total Protein 8.1 Albumin 3.6 Calcium Level 8.4 Alkaline Phosphatase 57 Aspartate Amino Transf (AST/SGOT) 32 Alanine Aminotransferase (ALT/SGPT) 21 Total Bilirubin 0.5 Sodium Level 133 Potassium Level 4.1 Chloride Level 104 Carbon Dioxide Level 21.4 Anion Gap 8 Estimat Glomerular Filtration Rate 59 Date/Time Source Procedure Growth Status 08/19/17 12:55 Blood Peripheral Aerobic Blood Culture Pending Received 08/19/17 12:55 Blood Peripheral Anaerobic Blood Culture Pending Received 08/19/17 13:00 Nasal Washing Influenza Types A,B Antigen (BON) - Final Positive For Flu A Antigen Complete 2/21/18 12:33 Urine Catheterized Urine Urine Culture Pending Received Result Diagram: 08/19/17 1255 08/19/17 1255 Imaging Last Impressions Chest X-Ray 08/19/17 1202 Signed Impressions: Service Date/Time: Saturday, August 19, 2017 12:21 - CONCLUSION: 1. Subsegmental airspace disease in the right lung base most characteristic of a mild bronchopneumonia. MD Fredi Galeas VTE Risk Assessment Caprini VTE Risk Assessment: Mod/High Risk (score >= 2) Caprini Risk Assessment Model Point Value = 1 Point Value = 2 Point Value = 3 Point Value = 5 Age 41-60 Minor surgery BMI > 25 kg/m2 Swollen legs Varicose veins or History of unexplained or recurrent spontaneous Oral contraceptives or hormone replacement Sepsis (< 1 month) Serious lung disease, including pneumonia (< 1 month) Abnormal pulmonary function Acute myocardial infarction Congestive heart failure (< 1 month) History of inflammatory bowel disease Medical patient at bed rest Age 61-74 Arthroscopic surgery Major open surgery (> 45 min) Laparoscopic surgery (> 45 min) Malignancy Confined to bed (> 72 hours) Immobilizing plaster cast Central venous access Age >= 75 History of VTE Family history of VTE Factor V Leiden Prothrombin [id number] Lupus anticoagulant Anticardiolipin antibodies Elevated serum homocysteine Heparin-induced thrombocytopenia Other congenital or acquired thrombophilia Stroke (< 1 month) Elective arthroplasty Hip, pelvis, or leg fracture Acute spinal cord injury (< 1 month) Prophylaxis Regimen Total Risk Factor Score Risk Level Prophylaxis Regimen 0-1 Low Early ambulation 2 Moderate Order ONE of the following: *Sequential Compression Device (SCD) *Heparin 5000 units SQ BID 3-4 Higher Order ONE of the following medications: *Heparin 5000 units SQ TID *Enoxaparin/Lovenox 40 mg SQ daily (WT < 150 kg, CrCl > 30 mL/min) *Enoxaparin/Lovenox 30 mg SQ daily (WT < 150 kg, CrCl > 10-29 mL/min) *Enoxaparin/Lovenox 30 mg SQ BID (WT < 150 kg, CrCl > 30 mL/min) AND/OR *Sequential Compression Device (SCD) 5 or more Highest Order ONE of the following medications: *Heparin 5000 units SQ TID (Preferred with Epidurals) *Enoxaparin/Lovenox 40 mg SQ daily (WT < 150 kg, CrCl > 30 mL/min) *Enoxaparin/Lovenox 30 mg SQ daily (WT < 150 kg, CrCl > 10-29 mL/min) *Enoxaparin/Lovenox 30 mg SQ BID (WT < 150 kg, CrCl > 30 mL/min) AND *Sequential Compression Device (SCD) Assessment and Plan Problem List: (1) Sepsis ICD Code: A41.9 - Sepsis, unspecified organism Plan: Secondary to influenza and pneumonia. Cannot rule out superimposed bacterial infection - Treat with Tamiflu, Rocephin and azithromycin - Follow blood cultures and fever curves. - Continue IV hydration. (2) Pneumonia and influenza ICD Code: J11.00 - Influenza due to unidentified influenza virus with unspecified type of pneumonia Plan: Treatment as above Supportive care. Antiemetics. (3) HIV (human immunodeficiency virus infection) ICD Code: B20 - Human immunodeficiency virus [HIV] disease Plan: Continue home dose antiretroviral therapy. (4) UTI (urinary tract infection) ICD Code: N39.0 - Urinary tract infection, site not specified Plan: On Rocephin as above. Follow urine cultures Physician Certification 2 Midnight Certification Type: Admission for Inpatient Services Order for Inpatient Services The services are ordered in accordance with Medicare regulations or non- Medicare payer requirements, as applicable. In the case of services not specified as inpatient-only, they are appropriately provided as inpatient services in accordance with the 2-midnight benchmark. Estimated LOS (days): 2 days is the estimated time the patient will need to remain in the hospital, assuming treatment plan goals are met and no additional complications. Post-Hospital Plan: Home Lionel Carlin MD Aug 19, 2017 15:28
[2017-08-19] MEDS: HEPARIN SODIUM - SQ 10,000 UNITS/ML VIAL SQ SCH (16:16)
[2017-08-19 17:00] VITALS: BP 113/68; PULSE 72; RESP 17; TEMP 97.7; O2SAT 97
[2017-08-19] MEDS: SODIUM CHLOR 0.45% 1000 ML INJ 1,000 ML IV SCH (17:36)
[2017-08-19] MEDS ORDERED: SULFAMETHOXAZOLE-TRIMETHOPRIM DS 800-160 MG TAB PO SCH (18:00)
[2017-08-19] MEDS: CALCIUM/VITAMIN D 250 MG/125 U TAB PO SCH (18:29)
[2017-08-19 20:00] VITALS: BP 111/69; PULSE 69; PULSE 80; PULSE 82; RESP 17; TEMP 98.2; O2SAT 98
[2017-08-19] MEDS: ONDANSETRON HCL 4 MG/2 ML VIAL IVP PRN (21:25)
[2017-08-19] MEDS: SODIUM CHLORIDE 0.9% FLUSH 10 ML FLUSH IV FLUSH SCH (21:25)
[2017-08-19] MEDS: DARUNAVIR 600 MG TAB PO SCH (21:25)
[2017-08-19] MEDS: RITONAVIR 100 MG TAB PO SCH (21:27)
[2017-08-19] MEDS: DOLUTEGRAVIR SODIUM 50 MG TAB PO SCH (21:27)
[2017-08-19] MEDS: OSELTAMIVIR PHOSPHATE 75 MG CAP PO SCH (21:27)
[2017-08-19] MEDS: AZITHROMYCIN 250 MG TAB PO SCH (21:29)
[2017-08-20] VITALS (9 sets, daily range): BP systolic 104–118; BP diastolic 68–74; PULSE 71–85; RESP 16–21; TEMP 98–99; O2SAT 95–99
[2017-08-20] MEDS: SODIUM CHLOR 0.45% 1000 ML INJ 1,000 ML IV SCH ×2 (04:55→06:26)
[2017-08-20] MEDS: HEPARIN SODIUM - SQ 10,000 UNITS/ML VIAL SQ SCH ×2 (04:55→15:45)
[2017-08-20] MEDS: CALCIUM/VITAMIN D 250 MG/125 U TAB PO SCH ×2 (06:26→17:10)
[2017-08-20] MEDS: OSELTAMIVIR PHOSPHATE 75 MG CAP PO SCH ×2 (06:26→17:10)
[2017-08-20] MEDS: ONDANSETRON HCL 4 MG/2 ML VIAL IVP PRN (06:28)
[2017-08-20 08:49] LABS: AUTOMATED NEUTROPHIL # 0.6 TH/MM3 (1.8-7.7); BASOPHIL % 0.2 % (0.0-2.0); EOSINOPHIL # 0.1 TH/MM3 (0-0.4); EOSINOPHIL % 6.3 % (0.0-4.0); HEMATOCRIT 34.7 % (35.0-46.0); HEMOGLOBIN 11.6 GM/DL (11.6-15.3); LYMPH % 48.9 % (9.0-44.0); LYMPHOCYTE # 0.9 TH/MM3 (1.0-4.8); MEAN CORPUSCULAR HEMOGLOBIN 30.4 PG (27.0-34.0); MEAN CORPUSCULAR HGB CONC 33.4 % (32.0-36.0); MEAN PLATELET VOLUME 8.8 FL (7.0-11.0); MONOCYTE # 0.2 TH/MM3 (0-0.9); NEUT % 31.6 % (16.0-70.0); PLATELET COUNT 99 TH/MM3 (150-450); RED BLOOD COUNT 3.82 MIL/MM3 (4.00-5.30); RED CELL DISTRIBUTION WIDTH 13.1 % (11.6-17.2); WHITE BLOOD COUNT 1.8 TH/MM3 (4.0-11.0)
[2017-08-20 08:51] LABS: BICARBONATE 18.7 MEQ/L (21.0-32.0); CALCIUM 7.8 MG/DL (8.5-10.1); CREATININE 0.84 MG/DL (0.50-1.00)
[2017-08-20] MEDS: cefTRIAXone INJ 1,000 MG in SODIUM CHLORIDE 0.9% INJ 100 ML IV SCH ×2 (09:38→22:05)
[2017-08-20 09:39] LABS: BANDS 6 % (0-6); LYMPHOCYTES 31 % (9-44); MONOCYTES 12 % (0-8); POLYS (SEG NEUTROPHILS) 48 % (16-70)
[2017-08-20] MEDS: SODIUM CHLORIDE 0.9% FLUSH 10 ML FLUSH IV FLUSH SCH ×2 (09:39→22:05)
[2017-08-20] MEDS: AZITHROMYCIN 250 MG TAB PO SCH (09:39)
[2017-08-20] MEDS ORDERED: PNEUMOCOCCAL POLYVALENT INJ 25 MCG/0.5 ML SYR IM ONE (10:00)
[2017-08-20] MEDS ORDERED: INFLUENZA VIRUS VACCINE (QUADRIVALENT) 0.5 ML SYR IM ONE (10:00)
[2017-08-20] MEDS: DOLUTEGRAVIR SODIUM 50 MG TAB PO SCH ×2 (12:30→22:05)
[2017-08-20] MEDS: TENOFOVIR DISOPROXIL FUMARATE 300 MG TAB PO SCH (12:30)
[2017-08-20] MEDS: RITONAVIR 100 MG TAB PO SCH ×2 (12:30→22:05)
[2017-08-20] MEDS: DARUNAVIR 600 MG TAB PO SCH ×2 (12:30→17:10)
--- NOTE | 2017-08-20 14:32 | HHI.PR ---
Subjective Remarks patient feeling better, body aches better complains of minimal dry cough, throat discomfort no difficulty swallowing no complains of dysuria or burning urination Objective Vitals Vital Signs Date Time Temp Pulse Resp B/P (MAP) Pulse Ox O2 Delivery O2 Flow Rate FiO2 08/20/17 12:17 99.0 82 17 110/70 (83) 97 08/20/17 08:19 98.6 75 17 111/72 (85) 98 08/20/17 04:00 98.1 79 17 104/69 (81) 95 08/20/17 00:00 98.0 71 16 104/72 (83) 96 08/20/17 00:00 74 08/19/17 20:00 98.2 80 17 111/69 (83) 98 08/19/17 20:00 98 Room Air 08/19/17 20:00 69 08/19/17 20:00 82 08/19/17 18:00 Room Air 08/19/17 17:08 08/19/17 17:00 97.7 72 17 113/68 (83) 97 08/19/17 15:02 98.8 I/O 08/19/17 08/19/17 08/19/17 08/20/17 08/20/17 08/20/17 07:00 15:00 23:00 07:00 15:00 23:00 Intake Total 2460 ml 1000 ml 240 ml Balance 2460 ml 1000 ml 240 ml Intake Oral 360 ml 240 ml IV Total 2100 ml 1000 ml # Voids 1 2 Result Diagram: 08/20/17 0657 08/20/17 0657 Imaging Last Impressions Chest X-Ray 08/19/17 1202 Signed Impressions: Service Date/Time: Saturday, August 19, 2017 12:21 - CONCLUSION: 1. Subsegmental airspace disease in the right lung base most characteristic of a mild bronchopneumonia. Chris Vázquez MD Objective Remarks awake and alert, no acute distress throat no oral thrush, no exudates lungs- no rales regular rhythm abdomen soft, nontender extremities no edema A/P Problem List: (1) Sepsis ICD Code: A41.9 - Sepsis, unspecified organism (2) Pneumonia and influenza ICD Code: J11.00 - Influenza due to unidentified influenza virus with unspecified type of pneumonia (3) HIV (human immunodeficiency virus infection) ICD Code: B20 - Human immunodeficiency virus [HIV] disease (4) UTI (urinary tract infection) ICD Code: N39.0 - Urinary tract infection, site not specified Assessment and Plan (1) Sepsis ICD Code: A41.9 - Sepsis, unspecified organism Plan: Secondary to influenza and pneumonia. Cannot rule out superimposed bacterial infection - Treat with Tamiflu, Rocephin and azithromycin - Follow blood cultures and fever curves. - Continue IV hydration. (2) Pneumonia and influenza ICD Code: J11.00 - Influenza due to unidentified influenza virus with unspecified type of pneumonia Plan: Treatment as above Supportive care. Antiemetics. prn cough meds (3) HIV (human immunodeficiency virus infection) ICD Code: B20 - Human immunodeficiency virus [HIV] disease Plan: Continue home dose antiretroviral therapy. (4) UTI (urinary tract infection) ICD Code: N39.0 - Urinary tract infection, site not specified Plan: On Rocephin as above. Follow urine cultures- pending Patient up and ambulating Afua Woody MD Aug 20, 2017 14:32
[2017-08-20] MEDS: guaiFENesin/DEXTROMETHORPHAN 200 MG/20 MG/10 ML CUP PO SCH ×2 (15:44→17:10)
[2017-08-21] VITALS: BP_SYST 111; BP_SYST 128; BP_DIAS 61; BP_DIAS 78; PULSE 78; PULSE 92; RESP 16; TEMP 99; O2SAT 98
[2017-08-21] MEDS: SODIUM CHLOR 0.45% 1000 ML INJ 1,000 ML IV SCH (02:32)
[2017-08-21 04:00] VITALS: BP 103/67; PULSE 76; PULSE 79; RESP 19; TEMP 99.6; O2SAT 97
[2017-08-21] MEDS: CALCIUM/VITAMIN D 250 MG/125 U TAB PO SCH (05:46)
[2017-08-21] MEDS: OSELTAMIVIR PHOSPHATE 75 MG CAP PO SCH (05:46)
[2017-08-21] MEDS: HEPARIN SODIUM - SQ 10,000 UNITS/ML VIAL SQ SCH (05:47)
[2017-08-21 07:47] VITALS: PULSE 71
[2017-08-21 08:00] VITALS: BP 102/54; PULSE 84; RESP 20; TEMP 98.3; O2SAT 95
[2017-08-21] MEDS: DARUNAVIR 600 MG TAB PO SCH (09:56)
[2017-08-21] MEDS: guaiFENesin/DEXTROMETHORPHAN 200 MG/20 MG/10 ML CUP PO SCH (09:56)
[2017-08-21] MEDS: AZITHROMYCIN 250 MG TAB PO SCH (09:57)
[2017-08-21] MEDS: DOLUTEGRAVIR SODIUM 50 MG TAB PO SCH (09:57)
[2017-08-21] MEDS: TENOFOVIR DISOPROXIL FUMARATE 300 MG TAB PO SCH (09:57)
[2017-08-21] MEDS: cefTRIAXone INJ 1,000 MG in SODIUM CHLORIDE 0.9% INJ 100 ML IV SCH (09:58)
[2017-08-21] MEDS: SODIUM CHLORIDE 0.9% FLUSH 10 ML FLUSH IV FLUSH SCH (09:58)
[2017-08-21] MEDS: RITONAVIR 100 MG TAB PO SCH (09:59)
--- NOTE | 2017-08-21 11:16 | HHI.PR ---
Subjective Remarks no fever, chills feels great, no diarrhea no cough Objective Vitals Vital Signs Date Time Temp Pulse Resp B/P (MAP) Pulse Ox O2 Delivery O2 Flow Rate FiO2 08/21/17 08:00 98.3 84 20 102/54 (70) 95 08/21/17 07:47 71 08/21/17 04:00 99.6 79 19 103/67 (79) 97 08/21/17 04:00 76 08/21/17 00:00 78 08/21/17 00:00 99.0 92 16 111/61 (78) 98 08/20/17 20:00 98.8 72 21 118/74 (89) 99 08/20/17 20:00 81 08/20/17 19:45 99 Room Air 08/20/17 16:01 98.9 81 16 110/68 (82) 98 08/20/17 16:00 Room Air 08/20/17 15:38 74 08/20/17 12:17 99.0 82 17 110/70 (83) 97 08/20/17 12:00 Room Air 08/20/17 11:50 82 I/O 08/20/17 08/20/17 08/20/17 08/21/17 08/21/17 08/21/17 07:00 15:00 23:00 07:00 15:00 23:00 Intake Total 1000 ml 240 ml 480 ml 240 ml Balance 1000 ml 240 ml 480 ml 240 ml Intake Oral 240 ml 480 ml 240 ml IV Total 1000 ml # Voids 2 4 6 # Bowel Movements 3 1 Result Diagram: 08/20/17 0657 08/20/17 0657 Imaging Last Impressions Chest X-Ray 08/19/17 1202 Signed Impressions: Service Date/Time: Saturday, August 19, 2017 12:21 - CONCLUSION: 1. Subsegmental airspace disease in the right lung base most characteristic of a mild bronchopneumonia. Chris Vázquez MD Objective Remarks awake and alert, no acute distress throat no oral thrush, no exudates lungs- no rales regular rhythm abdomen soft, nontender, no CVA tendereness extremities no edema A/P Problem List: (1) Sepsis ICD Code: A41.9 - Sepsis, unspecified organism (2) Pneumonia and influenza ICD Code: J11.00 - Influenza due to unidentified influenza virus with unspecified type of pneumonia (3) HIV (human immunodeficiency virus infection) ICD Code: B20 - Human immunodeficiency virus [HIV] disease (4) UTI (urinary tract infection) ICD Code: N39.0 - Urinary tract infection, site not specified Assessment and Plan (1) Sepsis ICD Code: A41.9 - Sepsis, unspecified organism Plan: Secondary to influenza and pneumonia. Cannot rule out superimposed bacterial infection - Treat with Tamiflu, Rocephin and azithromycin - Follow blood cultures and fever curves.- negative - change to po Ceftin =- advise her to get a gyne check0- - states she is due next week - sexual hygiene - OP ff up with PCP in 1 week (2) Pneumonia and influenza ICD Code: J11.00 - Influenza due to unidentified influenza virus with unspecified type of pneumonia Plan: Treatment as above Supportive care. Antiemetics. prn cough meds - change to po antibiotics- either Bactrim or Ceftin to cover UTI- too - - gowing Saprophyticus (3) HIV (human immunodeficiency virus infection) ICD Code: B20 - Human immunodeficiency virus [HIV] disease Plan: Continue home dose antiretroviral therapy. OP ff up with her HIV MD (4) UTI (urinary tract infection) ICD Code: N39.0 - Urinary tract infection, site not specified Plan: On Rocephin as above. Follow urine cultures- pending- grwoing Saprophyticus - DC on po antibiotic- likely Ceftin- I roger call it in to her pharmacy- [facility] - she got rocephin today Patient up and ambulating d/w with her sensitivity will be back this pm and call in meds if needs to be change based on sensitivity tp her pharmacy[facility] Problem Qualifiers (1) UTI (urinary tract infection): Qualified Codes: N39.0 - Urinary tract infection, site not specified; R31.9 - Hematuria, unspecified Afua Woody MD Aug 21, 2017 11:16
[2017-08-21 12:00] VITALS: BP 101/64; PULSE 92; RESP 20; TEMP 97.6; O2SAT 96
[2017-08-21] MEDS ORDERED: CEFU1TAB20 PO (12:29)
[2017-08-21] MEDS ORDERED: OSEL75 PO (12:31)
[2017-08-21] MEDS ORDERED: DOXY100C PO (18:19)
== END 2017-08-21 13:06 | disposition home or self-care (01) | DRG 974 ==
LOC: NEPC 11:55 → NEDA 14:33 → N04B 16:41
PROVIDERS: ADMIT Internal Medicine; ATTEND Internal Medicine
DX: B20 Human immunodeficiency virus [HIV] disease (principal); A41.9 Sepsis, unspecified organism; J18.0 Bronchopneumonia, unspecified organism; J09.X1 Influenza due to identified novel influenza A virus with pneumonia; N39.0 Urinary tract infection, site not specified; J45.909 Unspecified asthma, uncomplicated; H54.61 Unqualified visual loss, right eye, normal vision left eye; Z87.891 Personal history of nicotine dependence; Z23 Encounter for immunization
CPT/HCPCS: 71046; 76937; 80048; 80053; 81001; 83605; 84703; 85007; 85025; 85027; 87040; 87086; 87804; 90686; 90732; 96361; 96374; J0696; J1644; J2405; J7030; Q2038